=== PATIENT | male | born 1965 ===

== ENCOUNTER 2018-01-11 00:40 | Day surgery (SDC) | payer OTHER, BC ==
[~2018-01-11] VITALS: Ht 180.3 cm; Wt 112.0 kg
[~2018-01-11 00:40] MED LIST: AMLO1TAB62 PO; ASCO500C9 PO; ASPI-1471 PO; ASPI81TA86 PO; CARV25TA78 PO; CHOL10005 PO; GLUC1TAB13 PO; HYDR-2966 PO; OMEG-5 PO; PARO10TA80 PO
[2018-01-11] MEDS ORDERED: LIDOCAINE MPF 1% 5 ML VIAL ONE (07:20)
[2018-01-11] MEDS ORDERED: PROPOFOL EMUL(*) 10MG/ML 20 ML 20 ML ONE (07:20)
[2018-01-11] MEDS ORDERED: DEXAMETHASONE SOD 4 MG/ML VIAL ONE (07:20)
[2018-01-11] MEDS ORDERED: METOCLOPRAMIDE 10 MG/2 ML SDV ONE (07:20)
[2018-01-11] MEDS ORDERED: ONDANSETRON 4 MG/2 ML VIAL ONE (07:20)
[2018-01-11] MEDS ORDERED: ceFAZolin(*) 1 GM VIAL 2 GM in NS(*) 0.9% 100 ML BAG 100 ML IVPB ONE (08:25)
[2018-01-11 08:30] VITALS: BP 132/86
[2018-01-11] MEDS ORDERED: fentaNYL CITR 100 MCG/2 ML AMP ONE ×2 (08:39→11:00)
[2018-01-11] MEDS ORDERED: ROPIVACAINE 0.2% 20 ML VIAL ONE (09:41)
[2018-01-11] MEDS ORDERED: HYDR-4309 PO (11:26)
[2018-01-11] MEDS ORDERED: ceFAZolin(*) 2GM/D5W 50ML 50 ML IVPB ONE (11:45)
[2018-01-11] MEDS ORDERED: LIDOCAINE/SOD BICARB 8.4% SYR ID ONE (11:45)
[2018-01-11] MEDS ORDERED: NORMOSOL R SOLN(*) 1000 ML BAG 1,000 ML IV PRN (11:45)
[2018-01-11] MEDS ORDERED: FAMOTIDINE 20 MG TAB PO ONE (11:45)
[2018-01-11] MEDS ORDERED: MIDAZOLAM 2 MG/2 ML VIAL IVP PRN (11:45)
[2018-01-11 11:54] VITALS: BP 120/73
[2018-01-11 12:00] VITALS: BP 105/82
[2018-01-11 12:47] VITALS: BP 130/85
[2018-01-11 12:49] VITALS: BP 136/78
--- NOTE | 2018-01-11 12:50 | OPERATIVE REPORT 1 ---
EVENT DATE: January 11, 2018 SURGEON: Silas Coffman M.D. ANESTHESIA: General LMA. SUPERVISOR CRACK OFF: FRANK Landaverde, [employer] PREOPERATIVE DIAGNOSIS Right knee meniscus tearing as well as some cartilage damage and synovitis throughout the knee. POSTOPERATIVE DIAGNOSIS Right knee meniscus tearing as well as some cartilage damage and synovitis throughout the knee. PROCEDURE PERFORMED 1. Right knee partial medial meniscectomy and partial lateral meniscectomy. 2. Chondroplasty and synovectomy. 3. Loose body removal from all three compartments. ESTIMATED BLOOD LOSS Minimal. DRAINS None. SPECIMENS None. COMPLICATIONS None. TOURNIQUET TIME 28 minutes. IMPLANTS USED Not applicable. FINDINGS The patient has significant amount of torn cartilage within the knee and lateral meniscus tear, some tearing of the medial meniscus and loose fragments throughout. INDICATIONS AND HISTORY This patient is a 52-year-old male who presented to the clinic for evaluation of right knee pain and irritation associated with a workplace injury. He has continued to have pain and irritation despite conservative management. MRI images were reviewed and showed that he did have meniscus tearing as well as cartilage damage through the knee itself and this was giving him trouble so he wanted to go ahead with an operative procedure today, January 11, 2018, for chondroplasty and synovectomy and other work as indicated and also partial meniscectomy. We went over the risks and benefits associated with this. Given the cartilage damage in his knee, there is no guarantee that it will make him better and he may continue to have problems and issues associated with it long- term and he stated that he understood this. DESCRIPTION OF PROCEDURE The patient is brought into the operating room. He and the procedure were both verified. He and the procedure were both verified. He was placed supine on the operating room table and induced intubated by anesthesia. The right lower extremity was then prepped and draped in the usual fashion. A time-out was observed, verifying the correct patient and procedure. The standard incisions were made over the anterior aspect of the knee after inflation of the tourniquet. This was taken through the skin and subcutaneous tissue and then the scope was introduced into the lateral portal and into the intra-articular portion of the knee. This was when there were noted to be some loose fragments throughout the knee itself so these were removed by using a combination of a grasper and a suction shaver. Once I got most of these cleared off, I then removed the large medial plica over this area where there was some scar tissue and irritation associated with this. We then went down into the medial compartment, where there was some cartilage damage on the distal femoral condyle and a little bit of inner surface meniscal tearing. We did debride the inner surface and using a combination of meniscal biter and suction shaver we then resected the meniscus back to a nice stable base. Once everything was in good position and a stable base, we then performed chondroplasty on the distal femoral condyles as well as the proximal tibia in this area. We then cleaned off some of the synovitis over the anterior aspect of the knee and right over the ACL. The ACL itself looked fairly stable to probe, although there was some fraying and irritation associated with it. I then went into the lateral compartment, where I was able to find a large meniscus tear as well as some cartilage damage throughout. I utilized a suction shaver to perform a chondroplasty on the distal femoral condyle as well as the proximal tibia. This was then followed by a combination of meniscal biter and suction shaver in order to debride the meniscus back to a nice stable base as there was a tear in the posterior lateral and straight lateral meniscus and a little bit towards the anterior aspect. Once I was able to clean this all up, it looked significantly better and there were no signs of problems or issues associated with this part of the joint. I then reversed the portals and viewing from the medial side and removed some of the lateral plica and irritation associated with this. I also then performed chondroplasty in the patellofemoral joint as there was a slightly better angle associated with this and on the lateral condyle. I then also milked the knee in order to get all of the loose fragments from the sides or gutters associated with the knee. I did another diagnostic arthroscopy and then removed all of the loose fragments we found. Once this was done, I was able to remove all instrumentation from the knee and then close the portal sites with 4-0 Monocryl, anesthetize with 1% ropivacaine and dressing with steri -strips, gauze, 4x4s and soft dressing. Tourniquet was let down just under 30 minutes. The patient was awakened, extubated and transferred to PACU in stable condition. MELITA
[2018-01-11] MEDS ORDERED: APAP/HYDROCODONE 325/5 TAB ONE (13:17)
== END 2018-01-11 11:54 | disposition home or self-care (01) ==
LOC: OR 00:40
PROVIDERS: ATTEND Orthopaedic Surgery
DX: S83.281A Other tear of lateral meniscus, current injury, right knee, initial encounter (principal); S83.241A Other tear of medial meniscus, current injury, right knee, initial encounter; S83.91XA Sprain of unspecified site of right knee, initial encounter
CPT/HCPCS: 29876; 29880; J1100; J2001; J2405; J2704; J2765; J2795; J3010